=== PATIENT | female | born 1990 | race Two or more races ===

== ENCOUNTER 2018-01-29 08:55 | Observation (INO) | payer MEDICAID ==
[~2018-01-29] VITALS: Ht 157.5 cm; Wt 56.2 kg
[2018-01-29 09:35] VITALS: BP 101/59
[2018-01-29 10:35] LABS: BASOPHILS % (AUTO) 0.3 % (0.0-2.0); EOSINOPHILS # (AUTO) 0.1 K/uL (0-0.4); EOSINOPHILS % (AUTO) 0.9 % (0.0-4.0); HEMATOCRIT 35.8 % (36-48); HEMOGLOBIN 11.7 g/dL (12.0-16.0); LYMPHOCYTES # (AUTO) 1.4 K/uL (2.5-16.5); LYMPHOCYTES % (AUTO) 17.9 % (20.5-51.1); MEAN CORPUSCULAR HEMOGLOBIN 28 pg (27-31); MEAN CORPUSCULAR HGB CONC 33 g/dL (33-37); MEAN CORPUSCULAR VOLUME 86.7 fL (80-94); MONOCYTES # (AUTO) 0.4 K/uL (0.8-1.0); MONOCYTES % (AUTO) 5.3 % (1.7-9.3); NEUTROPHILS # (AUTO) 5.9 K/uL (1.8-7.7); NEUTROPHILS % (AUTO) 75.6 % (42.2-75.2); PLATELET COUNT (AUTO) 237 K/uL (140-450); RED BLOOD CELL COUNT(AUTO) 4.13 MIL/uL (4.20-5.40); WHITE BLOOD COUNT (AUTO) 7.8 K/uL (4.8-10.8)
[2018-01-29 12:20] LABS: APPEARANCE,URINE CLEAR (CLEAR); BILIRUBIN,URINE NEGATIVE (NEGATIVE); BLOOD, URINE NEGATIVE (NEGATIVE); COLOR,URINE YELLOW (YELLOW); LEUKOCYTE ESTERASE ,URINE NEGATIVE (NEGATIVE); NITRITE, URINE NEGATIVE (NEGATIVE); UGLUCOSE NEGATIVE (NEGATIVE)
== END 2018-01-29 14:50 | disposition home or self-care (01) ==
LOC: MLD 08:55
PROVIDERS: ADMIT Obstetrics & Gynecology; ATTEND Obstetrics & Gynecology
DX: O26.892 Other specified pregnancy related conditions, second trimester (principal); R10.30 Lower abdominal pain, unspecified; Z3A.24 24 weeks gestation of pregnancy
CPT/HCPCS: 36415; 76805; 81003; 85025; C1758; G0378; Q0092

== ENCOUNTER 2018-04-13 09:20 | Inpatient (IN) | payer MEDICAID ==
[~2018-04-13] VITALS: Ht 157.5 cm; Wt 62.6 kg
[2018-04-13] MEDS ORDERED: PREN-380 PO (09:38)
[2018-04-13] MEDS ORDERED: OXYTOCIN 20 UNITS in LACTATED RINGERS 1,000 ML IV SCH (09:55)
[2018-04-13] MEDS ORDERED: AMPICILLIN 2,000 MG in NACL 0.9% 100 ML IV STA (09:55)
[2018-04-13] MEDS: LACTATED RINGERS 1,000 ML IV SCH (10:00)
[2018-04-13] MEDS ORDERED: AMPICILLIN 2,000 MG VIAL ONE (10:20)
[2018-04-13] MEDS ORDERED: BETAMETH ACET/BETAMETH NA PH 30 MG/5 ML VIAL IM ONE ×2 (10:21→22:37)
[2018-04-13] MEDS ORDERED: TERBUTALINE 1 MG/ML VIAL SUBQ ONE (10:21)
[2018-04-13] MEDS: TERBUTALINE 1 MG/ML VIAL SUBQ SCH ×2 (10:29→12:52)
[2018-04-13 10:30] VITALS: BP 120/60
[2018-04-13] MEDS: BETAMETH ACET/BETAMETH NA PH 30 MG/5 ML VIAL IM SCH ×2 (10:33→22:40)
[2018-04-13 11:33] LABS: BASOPHILS % (AUTO) 0.3 % (0.0-2.0); EOSINOPHILS % (AUTO) 0.5 % (0.0-4.0); HEMATOCRIT 38.9 % (36-48); HEMOGLOBIN 12.7 g/dL (12.0-16.0); LYMPHOCYTES # (AUTO) 1.8 K/uL (2.5-16.5); LYMPHOCYTES % (AUTO) 21.2 % (20.5-51.1); MEAN CORPUSCULAR HEMOGLOBIN 29 pg (27-31); MEAN CORPUSCULAR HGB CONC 33 g/dL (33-37); MEAN CORPUSCULAR VOLUME 89.5 fL (80-94); MONOCYTES # (AUTO) 0.5 K/uL (0.8-1.0); MONOCYTES % (AUTO) 6.5 % (1.7-9.3); NEUTROPHILS % (AUTO) 71.5 % (42.2-75.2); PLATELET COUNT (AUTO) 165 K/uL (140-450); RED BLOOD CELL COUNT(AUTO) 4.35 MIL/uL (4.20-5.40); RED CELL DISTRIBUTION WIDTH 14.1 % (11.6-13.7); WHITE BLOOD COUNT (AUTO) 8.3 K/uL (4.8-10.8)
[2018-04-13 11:44] LABS: APPEARANCE,URINE CLEAR (CLEAR); BILIRUBIN,URINE NEGATIVE (NEGATIVE); BLOOD, URINE NEGATIVE (NEGATIVE); COLOR,URINE YELLOW (YELLOW); LEUKOCYTE ESTERASE ,URINE TRACE (NEGATIVE); NITRITE, URINE NEGATIVE (NEGATIVE); UGLUCOSE NEGATIVE (NEGATIVE)
[2018-04-13 11:44] LABS: ALBUMIN 2.4 g/dL (3.4-5.0); ANION GAP 16.5 (8-16); CARBON DIOXIDE 20.5 mmol/L (21-32); CREATININE 0.7 mg/dL (0.6-1.3); TOTAL BILIRUBIN 0.4 mg/dL (0.0-1.0)
[2018-04-13 11:46] LABS: RBC,URINE 0-5 (RARE) /HPF (0-5)
[2018-04-13] MEDS ORDERED: AMPICILLIN 1,000 MG VIAL ONE ×3 (13:58→22:00)
[2018-04-13] MEDS: AMPICILLIN 1,000 MG in NACL 0.9% 50 ML IV SCH ×3 (14:02→22:06)
[2018-04-13 14:29] LABS: PROTHROMBIN TIME 8.9 secs (10.8-13.4)
[2018-04-13] MEDS: TERBUTALINE 2.5 MG TAB PO SCH ×2 (17:15→23:05)
[2018-04-13] MEDS ORDERED: TERBUTALINE 2.5 MG TAB ONE ×2 (17:21→23:11)
[2018-04-13] MEDS ORDERED: KCL 20 MEQ/WATER INJ PREMIX 200 ML IV ONE (21:52)
[2018-04-13] MEDS ORDERED: KCL 20 MEQ/WATER INJ PREMIX 200 ML IV SCH (22:00)
[2018-04-14] MEDS: LACTATED RINGERS 1,000 ML IV SCH ×2 (01:47→08:12)
[2018-04-14] MEDS ORDERED: AMPICILLIN 1,000 MG VIAL ONE ×2 (02:06→06:03)
[2018-04-14] MEDS: AMPICILLIN 1,000 MG in NACL 0.9% 50 ML IV SCH ×2 (02:07→06:02)
[2018-04-14] MEDS ORDERED: TERBUTALINE 1 MG/ML VIAL SUBQ ONE ×2 (02:33→09:16)
[2018-04-14] MEDS ORDERED: TERBUTALINE 1 MG/ML VIAL SUBQ SCH ×2 (03:00→09:10)
[2018-04-14] MEDS: OXYTOCIN 20 UNITS in LACTATED RINGERS 1,000 ML IV SCH ×2 (05:00→21:00)
[2018-04-14] MEDS: TERBUTALINE 2.5 MG TAB PO SCH (05:02)
[2018-04-14] MEDS ORDERED: TERBUTALINE 2.5 MG TAB ONE (05:08)
--- NOTE | 2018-04-14 08:23 | NUR ---
PATIENT HAS BEEN SCREENED AND CATEGORIZED LOW NUTRITION RISK. PATIENT WILL BE SEEN WITHIN 7 DAYS OF ADMISSION. 04/19/[address]
[2018-04-14] MEDS ORDERED: OXYTOCIN 20 UNITS in LACTATED RINGERS 1,000 ML IV SCH (09:00)
[2018-04-14 09:02] LABS: ALBUMIN 2.2 g/dL (3.4-5.0); ANION GAP 14.3 (8-16); CARBON DIOXIDE 19.5 mmol/L (21-32); CREATININE 0.6 mg/dL (0.6-1.3); POTASSIUM 3.8 mmol/L (3.5-5.1); TOTAL BILIRUBIN 0.2 mg/dL (0.0-1.0)
[2018-04-14] MEDS: TERBUTALINE 1 MG/ML VIAL SUBQ SCH (09:10)
[2018-04-14] MEDS ORDERED: CITRIC ACID/SODIUM CITRATE 30 ML UDC PO SCH (10:01)
[2018-04-14] MEDS ORDERED: CITRIC ACID/SODIUM CITRATE 30 ML UDC ONE (10:15)
[2018-04-14] MEDS ORDERED: ePHEDrine 50 MG/ML VIAL ONE (10:29)
[2018-04-14] MEDS ORDERED: fentaNYL 0.05 MG/ML VIAL ONE (10:48)
[2018-04-14] MEDS ORDERED: MORPHINE PRES FREE 10 MG/10 ML AMP IV ONE (10:49)
[2018-04-14] MEDS ORDERED: ONDANSETRON 4 MG/2 ML VIAL IVP PRN ×2 (11:40→11:45)
[2018-04-14] MEDS ORDERED: NALOXONE 0.4 MG/ML VIAL IVP PRN ×3 (11:45)
[2018-04-14] MEDS ORDERED: KETOROLAC 60 MG/2 ML VIAL IM PRN (11:45)
[2018-04-14] MEDS ORDERED: NALBUPHINE 10 MG/ML AMP IVP PRN (11:45)
[2018-04-14] MEDS ORDERED: diphenhydrAMINE 50 MG/ML VIAL IVP PRN (11:45)
[2018-04-14] MEDS ORDERED: OXYTOCIN 20 UNITS/LR PREMIX 1,000 ML IV ONE ×2 (12:55→20:49)
[2018-04-14] MEDS ORDERED: ONDANSETRON 4 MG/2 ML VIAL ONE (12:55)
[2018-04-14] MEDS ORDERED: MEASLES, MUMPS, AND RUBELLA 1 VIAL SQVAC PRN (13:45)
[2018-04-14] MEDS ORDERED: KETOROLAC 30 MG/ML VIAL IVP PRN (13:45)
[2018-04-14] MEDS ORDERED: HYDROmorphone 1 MG/ML AMP IVP PRN (13:45)
[2018-04-14] MEDS ORDERED: SIMETHICONE 80 MG TAB.CHEW PO SCH (14:02)
[2018-04-15] MEDS ORDERED: OXYTOCIN 20 UNITS/LR PREMIX 1,000 ML IV ONE (04:51)
[2018-04-15] MEDS: OXYTOCIN 20 UNITS in LACTATED RINGERS 1,000 ML IV SCH (05:18)
[2018-04-15 10:24] LABS: BASOPHILS % (AUTO) 0.1 % (0.0-2.0); HEMOGLOBIN 10.2 g/dL (12.0-16.0); LYMPHOCYTES # (AUTO) 1.1 K/uL (2.5-16.5); LYMPHOCYTES % (AUTO) 7.2 % (20.5-51.1); MEAN CORPUSCULAR HEMOGLOBIN 29 pg (27-31); MEAN CORPUSCULAR HGB CONC 32 g/dL (33-37); MEAN CORPUSCULAR VOLUME 89.7 fL (80-94); MONOCYTES # (AUTO) 0.7 K/uL (0.8-1.0); MONOCYTES % (AUTO) 4.5 % (1.7-9.3); NEUTROPHILS # (AUTO) 13.4 K/uL (1.8-7.7); NEUTROPHILS % (AUTO) 88.2 % (42.2-75.2); PLATELET COUNT (AUTO) 172 K/uL (140-450); RED BLOOD CELL COUNT(AUTO) 3.56 MIL/uL (4.20-5.40); RED CELL DISTRIBUTION WIDTH 14.1 % (11.6-13.7); WHITE BLOOD COUNT (AUTO) 15.2 K/uL (4.8-10.8)
[2018-04-15] MEDS ORDERED: ACETAMINOPHEN 325 MG TAB PO PRN (22:00)
[2018-04-16] MEDS ORDERED: IBUPROFEN 600 MG TAB PO PRN (08:00)
[2018-04-16] MEDS ORDERED: SODIUM PHOSPHATE 118 ML ENEM RC PRN (08:00)
[2018-04-16] MEDS: SIMETHICONE 80 MG TAB.CHEW PO SCH (16:42)
[2018-04-16] MEDS: BISACODYL 5 MG TABEC PO SCH (16:42)
[2018-04-16] MEDS: DOCUSATE SODIUM 100 MG GELCAP PO SCH (16:43)
[2018-04-17] MEDS: DOCUSATE SODIUM 100 MG GELCAP PO SCH (08:36)
[2018-04-17] MEDS: BISACODYL 5 MG TABEC PO SCH (08:37)
[2018-04-17] MEDS: SIMETHICONE 80 MG TAB.CHEW PO SCH ×2 (08:38→13:00)
[2018-04-18] MEDS: SIMETHICONE 80 MG TAB.CHEW PO SCH (09:15)
[2018-04-18] MEDS ORDERED: IBUP-1842 PO (14:40)
[2018-04-18] MEDS ORDERED: FERR325E14 PO (14:40)
== END 2018-04-18 17:45 | disposition home or self-care (01) | DRG 540 ==
LOC: MLD 09:20 → MFCC 04-14 10:35
PROVIDERS: ADMIT Obstetrics & Gynecology; ATTEND Obstetrics & Gynecology
PROC: 10D00Z1 Extraction of Products of Conception, Low, Open Approach (ICD-10-PCS; principal; 2018-04-14 10:30)
PROC: 3E0234Z Introduction of Serum, Toxoid and Vaccine into Muscle, Percutaneous Approach (ICD-10-PCS; 2018-04-16)
PROC: 3E0234Z Introduction of Serum, Toxoid and Vaccine into Muscle, Percutaneous Approach (ICD-10-PCS; 2018-04-16)
DX: O42.913 Preterm premature rupture of membranes, unspecified as to length of time between rupture and onset of labor, third trimester (principal); O34.211 Maternal care for low transverse scar from previous cesarean delivery; O76 Abnormality in fetal heart rate and rhythm complicating labor and delivery; Z37.0 Single live birth; Z3A.36 36 weeks gestation of pregnancy; Z23 Encounter for immunization
CPT/HCPCS: 36415; 51702; 76805; 80053; 81001; 85025; 85379; 85384; 85610; 85730; 86592; 86886; 86900; 86901; 87086; 90707; 90715; J0290; J0690; J0702; J2270; J2405; J2590; J3010; J3105; J3480; J7060; J7120; Q0092

== ENCOUNTER 2019-01-25 03:01 | Emergency (ER) | payer SELFPAY ==
[~2019-01-25] VITALS: Ht 157.5 cm; Wt 49.9 kg
[~2019-01-25 03:01] MED LIST: FERR325E14 PO; IBUP-1842 PO; PREN-380 PO
[2019-01-25 03:05] VITALS: BP 144/90
--- NOTE | 2019-01-25 03:05 | NUR ---
TO BED # 06 AMBULATORY
[2019-01-25] MEDS ORDERED: NACL 0.9% 500 ML IV ONE (03:19)
[2019-01-25] MEDS ORDERED: KETOROLAC 30 MG/ML VIAL IVP ONE (03:20)
[2019-01-25] MEDS ORDERED: ONDANSETRON 4 MG/2 ML VIAL IVP ONE (03:20)
--- NOTE | 2019-01-25 03:25 | NUR ---
Dr. Walker examining patient.
--- NOTE | 2019-01-25 03:30 | NUR ---
pATIENT WAS ASSESSED, RIGHT AC #22 GAUGE WAS INSERTED WITH GOOD BLOOD RETURN. lABS WERE DRAWN AT THE SAME TIME.
[2019-01-25 04:07] LABS: BASOPHILS % (AUTO) 0.2 % (0.0-2.0); EOSINOPHILS # (AUTO) 0.1 K/uL (0-0.4); EOSINOPHILS % (AUTO) 0.8 % (0.0-4.0); HEMATOCRIT 41.2 % (36-48); HEMOGLOBIN 13.6 g/dL (12.0-16.0); LYMPHOCYTES # (AUTO) 1.7 K/uL (2.5-16.5); LYMPHOCYTES % (AUTO) 14.6 % (20.5-51.1); MEAN CORPUSCULAR HEMOGLOBIN 29 pg (27-31); MEAN CORPUSCULAR HGB CONC 33 g/dL (33-37); MEAN CORPUSCULAR VOLUME 87.6 fL (80-94); MONOCYTES # (AUTO) 0.6 K/uL (0.8-1.0); NEUTROPHILS # (AUTO) 9.2 K/uL (1.8-7.7); NEUTROPHILS % (AUTO) 79.4 % (42.2-75.2); PLATELET COUNT (AUTO) 310 K/uL (140-450); RED CELL DISTRIBUTION WIDTH 13.4 % (11.6-13.7); WHITE BLOOD COUNT (AUTO) 11.6 K/uL (4.8-10.8)
--- NOTE | 2019-01-25 04:15 | NUR ---
ORDERED MEDICATIONS AND 500ML NS TO RUN OPEN WERE GIVEN. WILL MONITOR PATIENT.
[2019-01-25 04:19] LABS: ANION GAP 11.9 (8-16); CARBON DIOXIDE 28.7 mmol/L (21-32); CREATININE 0.7 mg/dL (0.6-1.3); POTASSIUM 3.6 mmol/L (3.5-5.1)
[2019-01-25 04:25] LABS: ALBUMIN 3.8 g/dL (3.4-5.0); TOTAL BILIRUBIN 0.2 mg/dL (0.0-1.0)
[2019-01-25 05:25] VITALS: BP 135/70
--- NOTE | 2019-01-25 05:25 | NUR ---
DISCHARGE INSTRUCTIONS COMPLETED, PATIENT VERBALIZED UNDERSTANDING. pAPER WORK SIGNED BY PATIENT. SAME WAS GIVEN TO HER. PATIENT IN A STABLE CONDITION, WALKED OFF THE ED.
--- NOTE | 2019-01-26 14:07 | NUR ---
Late entry. Confirmed with RN that 500ml 0.9 NS IV started at 0345 and completed at 0445
== END 2019-01-25 05:25 | disposition home or self-care (01) ==
LOC: MED 03:01
DX: A08.4 Viral intestinal infection, unspecified (principal); R03.0 Elevated blood-pressure reading, without diagnosis of hypertension; Z79.899 Other long term (current) drug therapy
CPT/HCPCS: 36415; 80053; 85025; 96361; 96374; 96375; 99283; J1885; J2405; J7030